=== PATIENT | male | born 1955 | race Caucasian/White ===

== ENCOUNTER 2018-02-02 14:26 | Emergency (ER) | payer OTHER ==
[2018-02-02] MEDS ORDERED: Sodium Chloride 0.9% 10 ML Syringe FLUSH PRN (15:24)
[2018-02-02] MEDS ORDERED: Sodium Chloride 0.9% 1,000 ML IV SCH (15:30)
[2018-02-02] MEDS ORDERED: Albuterol/Ipratropium 3.0-0.5 MG/3 ML Neb Soln NEB ONE (16:56)
--- NOTE | 2018-02-02 17:09 | EDM.PDOC ---
ED HPI GENERAL MEDICAL PROBLEM - General Chief Complaint: Cardiovascular Problem Stated Complaint: [facility] Time Seen by Provider: 02/02/18 14:55 Source of Information: Reports: Patient, EMS, RN Notes Reviewed - History of Present Illness INITIAL COMMENTS - FREE TEXT/NARRATIVE: 62-year-old male has been brought here by ambulance from the [place] clinic or evaluation of hypotension, dehydration, difficulty breathing. He does smoke and has smoked heavily for many years. Apparently he was found to be moderately hypotensive at the clinic with a standing blood pressure of about 70 systolic. IV of lactated Ringer's was started and he was transferred here for further evaluation. Patient denies chest pain. Metastases to been more short of breath than usual for the last 2 or 3 weeks. On arrival he immediately requested that he be allowed to go have a cigarette. I also considered smell stale alcohol on his breath. When questioned about alcohol usage she did admit that he does drink whiskey daily. No abdominal pain today. No vomiting today. He states he did vomit once last evening. He does have chronic cough but has not been coughing any worse than usual. Treatments TIRE ADJUSTER: Reports: EKG, IV/IO - Related Data Allergies Allergy/AdvReac Type Severity Reaction Status Date / Time No Known Allergies Allergy Verified 02/02/18 14:57 Past Medical History Cardiovascular History: Reports: High Cholesterol, Hypertension Social & Family History - Tobacco Use Smoking Status *Q: Current Every Day Smoker Years of Tobacco use: 50 Packs/Tins Daily: 1 ED ROS GENERAL - Review of Systems Review Of Systems: See Below Constitutional: Denies: Fever, Chills, Diaphoresis HEENT: Denies: Sinus Problem, Throat Pain Respiratory: Reports: Shortness of Breath, Wheezing, Cough. Denies: Sputum, Hemoptysis Cardiovascular: Denies: Chest Pain GI/Abdominal: Denies: Abdominal Pain, Nausea, Vomiting (No vomiting today) Musculoskeletal: Denies: Leg Pain Skin: Reports: No Symptoms Neurological: Reports: Dizziness (Mild when standing). Denies: Numbness, Tingling, Trouble Speaking ED EXAM, GENERAL - Physical Exam Exam: See Below General Appearance: Alert, No Apparent Distress (Other than requesting to get out for a cigarette) Eye Exam: Bilateral Eye: PERRL Nose: Normal Inspection Throat/Mouth: Normal Inspection, Normal Oropharynx Head: Atraumatic. No: Facial Swelling Neck: Supple, Full Range of Motion, Other Respiratory/Chest: No Respiratory Distress (No JVD), Lungs Clear. No: Rhonchi, Wheezing Cardiovascular: Regular Rate, Rhythm GI/Abdominal: Soft, Non-Tender. No: Guarding Extremities: Normal Inspection. No: Pedal Edema, Leg Pain, Increased Warmth, Redness Neurological: Alert, No Motor/Sensory Deficits Skin Exam: Warm, Dry, Normal Color Course - Vital Signs Last Recorded V/S: Last Vital Signs Temp 98.1 F 02/02/18 14:30 Pulse 52 L 02/02/18 17:18 Resp 13 02/02/18 17:18 BP 106/65 02/02/18 17:18 Pulse Ox 98 02/02/18 17:18 - Orders/Labs/Meds Orders: Active Orders 24 hr Category Date Time Status Peripheral IV Care [RC] . DIRECTED Care 02/02/18 15:25 Active RT Aerosol Therapy [RC] ASDIRECTED Care 02/02/18 16:56 Active Chest 1V Frontal [CR] Stat Exams 02/02/18 15:24 Taken Peripheral IV Insertion Adult [OM.PC] Stat Oth 02/02/18 15:24 Ordered Labs: Laboratory Tests 02/02/18 02/02/18 02/02/18 Range/Units 15:52 15:52 15:52 WBC 8.02 (4.23-9.07) K/mm3 RBC 3.88 L (4.63-6.08) M/mm3 Hgb 13.5 L (13.7-17.5) gm/L Hct 39.7 L (40.1-51.0) % MCV 102.3 H (79.0-92.2) fl MCH 34.8 H (25.7-32.2) pg MCHC 34.0 (32.2-35.5) g/dl RDW Std Deviation 46.6 H (35.1-43.9) fL Plt Count 230 (163-337) K/mm3 MPV 8.6 L (9.4-12.3) fl Neut % (Auto) 60.7 (34.0-67.9) % Lymph % (Auto) 30.4 (21.8-53.1) % [place] % (Auto) 6.7 (5.3-12.2) % Eos % (Auto) 1.9 (0.8-7.0) Baso % (Auto) 0.2 (0.1-1.2) % Neut # (Auto) 4.86 (1.78-5.38) K/mm3 Lymph # (Auto) 2.44 (1.32-3.57) K/mm3 [place] # (Auto) 0.54 (0.30-0.82) K/mm3 Eos # (Auto) 0.15 (0.04-0.54) K/mm3 Baso # (Auto) 0.02 (0.01-0.08) K/mm3 Sodium 139 (136-145) mEq/L Potassium 4.1 (3.5-5.1) mEq/L Chloride 102 (98-107) mEq/L Carbon Dioxide 20 L (21-32) mEq/L Anion Gap 21.1 H (5-15) BUN 28 H (7-18) mg/dL Creatinine 1.7 H (0.7-1.3) mg/dL Est Cr Clr Drug Dosing 43.90 mL/min Estimated GFR (MDRD) 41 (>60) mL/min BUN/Creatinine Ratio 16.5 (14-18) Glucose 77 L (80-115) mg/dL Calcium 8.2 L (8.5-10.1) mg/dL Total Bilirubin 0.4 (0.2-1.0) mg/dL AST 38 H (15-37) U/L ALT 26 (16-63) U/L Alkaline Phosphatase 74 (46-116) U/L C-Reactive Protein 1.0 (<1.0) mg/dL Total Protein 6.6 (6.4-8.2) g/dl Albumin 3.4 (3.4-5.0) g/dl Globulin 3.2 gm/dL Albumin/Globulin Ratio 1.1 (1-2) Ethyl Alcohol 0.17 (0.00) gm% Meds: Medications Discontinued Medications Generic Name Dose Route Start Last Admin Trade Name Freq PRN Reason Stop Dose Admin Albuterol/Ipratropium 3 ml 02/02/18 16:56 02/02/18 17:06 Duoneb 3.0-0.5 Mg/3 Ml NEB 02/02/18 16:57 3 ml ONETIME ONE Administration Sodium Chloride 1,000 mls @ 999 mls/hr 02/02/18 15:30 02/02/18 15:46 Normal Saline IV 999 mls/hr ONETIME PB Administration Sodium Chloride 10 ml 02/02/18 15:24 02/02/18 15:47 Saline Flush FLUSH 10 ml ASDIRECTED PRN Administration Keep Vein Open - Re-Assessments/Exams Free Text/Narrative Re-Assessment/Exam: 02/02/18 20:35 Chest x-ray shows very marketed hyperinflation. O2 sats of been running 98-100% room air. His blood alcohol did come back elevated at 0.17. Labs were otherwise relatively normal. Heart rate has been running slow, around 50 on average. I see that he is on metoprolol in addition to his other medications. At time of discharge I did recommend that metoprolol be stopped for now. Blood pressure about 110 systolic at time of discharge. He did receive a total of 2 L IV fluid while here in the ED. Was discharged feeling better. No shortness of breath or difficulty breathing at time of discharge. Discharge instructions as documented Departure - Departure Time of Disposition: 17:04 Disposition: Home, Self-Care 01 Condition: Fair Clinical Impression: Dehydration COPD (chronic obstructive pulmonary disease) Qualifiers: COPD type: unspecified COPD Qualified Code(s): J44.9 - Chronic obstructive pulmonary disease, unspecified Hypotension Qualifiers: Hypotension type: hypotension due to drug Qualified Code(s): I95.2 - Hypotension due to drugs Alcohol intoxication Qualifiers: Complication of substance-induced condition: uncomplicated Qualified Code(s): F10.920 - Alcohol use, unspecified with intoxication, uncomplicated Instructions: Hypotension, [id number], Chronic Obstructive Pulmonary Disease , [id number], Dehydration, Adult, [id number] Referrals: PCP,Unknown [Primary Care Provider] - Forms: ED Department Discharge Additional Instructions: Be sure to drink plenty of water to maintain hydration, your lab work show that you were moderately dehydrated today. Be careful not to drink too much alcohol. Your blood alcohol level at time of exam was 0.17. Stop the metoprolol. That is a medication that you do not need at this time. Follow up [place] clinic in about 1 week for further evaluation, treatment as needed. - My Orders Last 24 Hours: My Active Orders 02/02/18 15:24 Chest 1V Frontal [CR] Stat Peripheral IV Insertion Adult [OM.PC] Stat 02/02/18 15:25 Peripheral IV Care [RC] . DIRECTED 02/02/18 16:56 RT Aerosol Therapy [RC] ASDIRECTED - Assessment/Plan Last 24 Hours: My Active Orders 02/02/18 15:24 Chest 1V Frontal [CR] Stat Peripheral IV Insertion Adult [OM.PC] Stat 02/02/18 15:25 Peripheral IV Care [RC] . DIRECTED 02/02/18 16:56 RT Aerosol Therapy [RC] ASDIRECTED
--- NOTE | 2018-02-05 08:37 | CR ---
Chest: Portable view of the chest was obtained. Comparison: Prior chest x-ray of 12/07/12. Heart size is normal. Tortuous thoracic aorta is seen. Lungs are hyperinflated but clear. Plate and screws are noted within the left clavicle. Scoliosis is noted within the spine. Impression: 1. Emphysematous change. Other incidental findings. Nothing acute is seen on portable chest x-ray. Diagnostic code #2
== END 2018-02-02 17:22 | disposition home or self-care (01) ==
LOC: JD.ED 14:26
DX: I95.2 Hypotension due to drugs (principal); E86.0 Dehydration; J44.9 Chronic obstructive pulmonary disease, unspecified; F10.120 Alcohol abuse with intoxication, uncomplicated; I10 Essential (primary) hypertension; F17.210 Nicotine dependence, cigarettes, uncomplicated; Y90.6 Blood alcohol level of 120-199 mg/100 ml
CPT/HCPCS: 36415; 71045; 80053; 85025; 86140; 94640; 96360; 99285; G0480; J7040; J7050; J7620-GY

== ENCOUNTER 2018-02-06 22:38 | Emergency (ER) | payer OTHER ==
--- NOTE | 2018-02-07 00:45 | EDM.PDOC ---
ED HPI GENERAL MEDICAL PROBLEM - General Chief Complaint: Behavioral/Psych Stated Complaint: MH EVAL/ALCOHOL Time Seen by Provider: 02/06/18 23:01 Source of Information: Reports: Patient, Other - Related Data Allergies Allergy/AdvReac Type Severity Reaction Status Date / Time No Known Allergies Allergy Verified 02/02/18 14:57 Home Meds: Home Meds Hydrocodone/Acetaminophen [Hydrocodon-Acetaminophen 5-325] 1 tab PO BID PRN [History] Past Medical History Cardiovascular History: Reports: High Cholesterol, Hypertension Respiratory History: Reports: COPD Musculoskeletal History: Reports: Other (See Below) Other Musculoskeletal History: bilat torn rotater cuffs Psychiatric History: Reports: Anxiety, Depression, PTSD Social & Family History - Tobacco Use Smoking Status *Q: Current Every Day Smoker Years of Tobacco use: 40 Packs/Tins Daily: 0.5 - Caffeine Use Caffeine Use: Reports: None - Recreational Drug Use Recreational Drug Use: Yes Drug Use in Last 12 Months: No Recreational Drug Type: Reports: Cocaine, Marijuana/Hashish ED ROS GENERAL - Review of Systems Review Of Systems: See Below - Physical Exam Exam: See Below Course - Vital Signs Last Recorded V/S: Last Vital Signs Temp 37.2 C 02/06/18 22:52 Pulse 75 02/06/18 22:52 Resp 20 02/06/18 22:52 BP 138/91 H 02/06/18 22:52 Pulse Ox 100 02/06/18 22:52 - Orders/Labs/Meds Orders: Active Orders 24 hr Category Date Time Status DRUG SCREEN, URINE [URCHEM] Stat Lab 02/07/18 00:31 Received Labs: Laboratory Tests 02/06/18 02/06/18 Range/Units 23:35 23:35 WBC 8.79 (4.23-9.07) K/mm3 RBC 3.89 L (4.63-6.08) M/mm3 Hgb 13.6 L (13.7-17.5) gm/L Hct 39.0 L (40.1-51.0) % MCV 100.3 H (79.0-92.2) fl MCH 35.0 H (25.7-32.2) pg MCHC 34.9 (32.2-35.5) g/dl RDW Std Deviation 44.3 H (35.1-43.9) fL Plt Count 213 (163-337) K/mm3 MPV 8.6 L (9.4-12.3) fl Neut % (Auto) 44.3 (34.0-67.9) % Lymph % (Auto) 43.8 (21.8-53.1) % [place] % (Auto) 10.6 (5.3-12.2) % Eos % (Auto) 0.9 (0.8-7.0) Baso % (Auto) 0.3 (0.1-1.2) % Neut # (Auto) 3.89 (1.78-5.38) K/mm3 Lymph # (Auto) 3.85 H (1.32-3.57) K/mm3 [place] # (Auto) 0.93 H (0.30-0.82) K/mm3 Eos # (Auto) 0.08 (0.04-0.54) K/mm3 Baso # (Auto) 0.03 (0.01-0.08) K/mm3 Sodium 143 (136-145) mEq/L Potassium 3.6 (3.5-5.1) mEq/L Chloride 105 (98-107) mEq/L Carbon Dioxide 26 (21-32) mEq/L Anion Gap 15.6 H (5-15) BUN 14 (7-18) mg/dL Creatinine 1.0 (0.7-1.3) mg/dL Est Cr Clr Drug Dosing 76.61 mL/min Estimated GFR (MDRD) > 60 (>60) mL/min BUN/Creatinine Ratio 14.0 (14-18) Glucose 106 (80-115) mg/dL Calcium 8.6 (8.5-10.1) mg/dL Total Bilirubin 0.4 (0.2-1.0) mg/dL AST 38 H (15-37) U/L ALT 28 (16-63) U/L Alkaline Phosphatase 84 (46-116) U/L Total Protein 7.2 (6.4-8.2) g/dl Albumin 3.6 (3.4-5.0) g/dl Globulin 3.6 gm/dL Albumin/Globulin Ratio 1.0 (1-2) TSH 3rd Generation 2.703 (0.358-3.74) uIU/mL Ethyl Alcohol 0.27 (0.00) gm% Departure - Departure Time of Disposition: 00:43 Disposition: Home, Self-Care 01 Condition: Fair Clinical Impression: Alcohol abuse - Discharge Information *PRESCRIPTION DRUG MONITORING PROGRAM REVIEWED*: Not Applicable *COPY OF PRESCRIPTION DRUG MONITORING REPORT IN PATIENT DOMINIQUE: Not Applicable Referrals: Su Burroughs DO [Primary Care Provider] - Additional Instructions: Try to limit alcohol intake. If you desire help regarding alcohol related issues, please reach out to [facility] or [facility]. Followup with your provider regarding rotator cuff issues. - My Orders Last 24 Hours: My Active Orders 02/07/18 00:31 DRUG SCREEN, URINE [URCHEM] Stat - Assessment/Plan Last 24 Hours: My Active Orders 02/07/18 00:31 DRUG SCREEN, URINE [URCHEM] Stat
--- NOTE | 2018-02-07 03:25 | ER ---
REASON FOR EMERGENCY ROOM VISIT: Alcohol abuse and concerns of potential for self-harm. HISTORY OF PRESENT ILLNESS: This 62-year-old man was brought in by his carbide die maker's son apparently because he had been drinking and got considerable amount of alcohol for the past few days as well as taking hydrocodone. Apparently, the son walked into the patient's house and was concerned that he was talking about suicide to his carbide die maker. He also made comments such as, he wished "God would just take him." He admits that he had too much to drink today. He has been taking hydrocodone 3 to 4 tablets a day for the past few days for what he states is bilateral rotator cuff pain. He admits that in 1995 he seriously considered suicide and was going to use a knife to slice open his abdomen, but he feels that God stopped him from taking any further steps at that time. The [facility] and has been seeing someone there for his bilateral rotator cuff problems. He does carry a diagnosis of COPD for which he has been seen here as well as alcohol intoxication and abuse in the past. PAST MEDICAL HISTORY: Reviewed. See electronic medical record. It includes: 1. Hypertension. 2. Open reduction and internal fixation of clavicle fracture. 3. History of alcohol abuse. 4. Possible borderline diabetes. He has no history of coronary artery disease, liver disease, or kidney disease. CURRENT MEDICATIONS: He is on Wellbutrin for depression. He states that he had taken blood pressure medications in the past, but was told to hold off on these. These include metoprolol and hydrochlorothiazide. ALLERGIES: None to medications. REVIEW OF SYSTEMS: Pertinent positives and negatives as listed in the HPI. PHYSICAL EXAMINATION: GENERAL: He is actually quite jocular and communicative, and makes good eye contact. He has a faint smell of alcohol on his breath. He does not appear to be agitated in any way, but he wants to go outside and smoke a cigarette. HEENT: He has no scleral icterus. He has poor oral hygiene, and he has full upper dentures. The smell of alcohol is noted on his breath. NECK: Supple. No adenopathy, thyromegaly, or bruits. CHEST: No rhonchi, wheezes, or rales, but his breath sounds are somewhat diminished bilaterally, consistent with COPD. ABDOMEN: Nondistended, flat, nontender. EXTREMITIES: Normal pulses. No edema. He has decreased range of motion in both shoulders, particularly with abduction. There is some crepitus to passive range of motion and some discomfort elicited with any attempts to passively move his shoulder, particularly above 90 degrees. NEUROLOGIC: Cranial nerves 2 through 12 are intact. Deep tendon reflexes are brisk and symmetrical bilaterally in the lower extremities. Muscle strength, bulk, and tone are normal and symmetrical. Sensation is normal to crude touch. He has no asterixis. Station and gait were not tested. MENTAL STATUS: He is oriented x3. He does not show any signs of hallucination. He is not hearing any voices. He does not verbalize any paranoid delusions. He is somewhat jocular, almost inappropriately so. He tends to be circumstantial to a considerable degree. IMPRESSION: When asked about whether or not he would hurt himself, I am left with the impression that he is not a serious risk at this point in time. I expressed my concerns that he might do something foolish and hurt himself. He shook his head and said he will not. He then went on and said that he thinks it is the time for God to take him away. When I did discuss the possibility of holding him for a psych evaluation, he became somewhat agitated and said he wanted to go home and that he would not hurt himself. We allowed him to sit for a while, the patient wanted to leave. After careful consideration, I felt he was really not a serious harm to himself. He understands my concerns regarding his need for some psychiatric help as well as help with his alcohol and tendency towards potential abuse of narcotics. He took a taxi home, and I did not attempt to keep him against his will. [facility] /[id number]
== END 2018-02-07 00:52 | disposition home or self-care (01) ==
LOC: JD.ED 22:38
DX: F10.129 Alcohol abuse with intoxication, unspecified (principal); I10 Essential (primary) hypertension; F32.9 Major depressive disorder, single episode, unspecified; Y90.8 Blood alcohol level of 240 mg/100 ml or more; F17.210 Nicotine dependence, cigarettes, uncomplicated
CPT/HCPCS: 36415; 80053; 80306; 84443; 85025; 99285; G0480; 99284